=== PATIENT | female | born 1990 | race Caucasian/White ===

== ENCOUNTER 2017-06-10 19:22 | Observation (INO) | payer MEDICAID, SELFPAY ==
[2017-06-10 19:22] VITALS: BP 134/88; PULSE 111; RESP 20; TEMP 36.3; O2SAT 99; BMI 26.4
--- NOTE | 2017-06-10 19:26 | NURSING ---
Addendum entered by Darian Lynn 06/10/17 19:28: PER ISRAEL, PLEASE CALL AT [phone] IF NEEDED Original Note: ISRAEL FROM [facility] CALLED IN, SHE IS AWARE OF THIS PT, AND WILL SEE HER ON THE FLOOR TOMORROW, 06/11/17, IF ADMITTED.
--- NOTE | 2017-06-10 19:56 | ED.VISSUMM ---
- ER Visit Summary Date of Service: 06/10/17 Chief Complaint: [] Withdrawing from heroin and benzodiazepines called and told to come in for detox History of Present Illness: The patient is a 26 F [] long history of heroin and benzodiazepine abuse, prior history for multiple pulmonary emboli, endocarditis in the summer 2016, treated with 6 week IV antibiotic therapy at senior care, she indicates when she was discharged from the therapy she was not offered any long-term maintenance narcotic therapy so she began injecting heroin 1 day after discharge from senior care. Her last injection or use of any illicit drugs was 24 hours ago she states she feels very jittery and jumpy she is having no chest pain fever or cough she has been tested negative for HIV and hepatitis in the past, prior hysterectomy Physical Examination: [] Her vital signs are normal she feels very jittery she is awake and alert head neck chest unremarkable she has a grade 2 out of 6 systolic murmur that soft and she states is not new the abdomen soft nontender she her injection sites the upper extremities are some are old some are new but there is no signs of active infection drainage or pain neurologically she is awake moving all 4 Test Results: [] Emergency Department Course and Treatment: [] Time we did initiate the detox panel see the computer for orders will talk to hospitalist about admission Treatment Plan: [] Disposition: [] Admit stable Impression: [] Heroin and benzodiazepine withdrawal, long history of IV drug abuse, prior history for septic pulmonary emboli, prior history for endocarditis This note was generated with [employer] dictation software. It may contain incorrect words, spelling, and punctuation that were not noted in review of the chart prior to signing ED Disposition - Plan for ED Patient: Chief Complaint: General Illness Referrals: NOT,DEFINED [Primary Care Provider] -
[2017-06-10] MEDS: LORazepam 1 MG Tablet PO (20:11)
[2017-06-10] MEDS: Ondansetron ODT 4 MG Tablet PO (20:11)
[2017-06-10] MEDS: cloNIDine HCl 0.1 MG Tablet 0.2 MG PO (20:11)
[2017-06-10 20:22] LABS: Amphetamine Urine VISTA NEGATIVE (<1000 ng/mL); Barbiturate Urine VISTA NEGATIVE (< 200 ng/mL); Benzodiazepine Urine VISTA POSITIVE (< 200 ng/mL); Cocaine Urine VISTA NEGATIVE (< 300 ng/mL); Ecstacy Urine VISTA NEGATIVE (< 500 ng/mL); Methadone Urine VISTA NEGATIVE (< 300 ng/mL); PCP Urine VISTA NEGATIVE (< 25 ng/mL); THC Urine VISTA NEGATIVE (< 50 ng/mL); Vista UDS pH Range 7
[2017-06-10 20:41] LABS: Absolute Lymphocyte Count 1.51 X10^3/ul (0.83-4.51); Absolute Neutrophil Count 3.7 X10^3/uL (2.0-7.7); Basophil# 0.01 X10^3/uL; Basophil% 0.2 % (0-1); Eosinophil# 0.03 X10^3/uL; Eosinophils% 0.5 % (0-5); Lymphocyte # 1.51 X10^3/ul (4.0); Lymphocyte % 27.1 % (19-41); Mean Corp Hgb Conc 33.3 g/gl (32-36); Mean Corpuscular Hgb 28.5 pg (27.0-32.0); Mean Corpuscular Volume 85.4 fL (81-99); Mean Platelet Vol. 10.1 fl (6.2-12.0); Monocyte# 0.31 X10^3/uL; Monocyte% 5.6 % (0-10); Neutrophil # 3.71 X10^3/uL (2.7-7.7); Neutrophil % 66.4 % (47-70); Platelet Count 277 K/mm3 (150-450); RBC Distribution Width CV 13.7 % (11.6-14.6); RBC Distribution Width SD 42.6 fl (35.1-43.9); Red Blood Count 5.27 M/mm3 (4.2-5.4); White Blood Count 5.6 K/mm3 (4.4-11.0)
[2017-06-10 20:42] LABS: POSITIVE COUNT NO; POSITIVE DIFFERENTIAL NO; POSITIVE MORPHOLOGY NO
[2017-06-10] MEDS: Buprenorphine HCl 2 MG TAB.SUBL SL (21:02)
[2017-06-10 21:05] LABS: Anion Gap 9 (5-15); BUN 16 mg/dL (7-18); BUN/Creat Ratio 19.6 RATIO (10-20); Calcium,Total 9.9 mg/dL (8.5-10.1); Chloride 104 mmol/L (98-107); Creatinine, Serum 0.82 mg/dL (0.55-1.02); EST Glomerular Filtration Rate 88 mL/min (>60); Est Glom Filt Rate - Afr Amer 107 mL/min (>60); Estimated Creatinine Clearance 99.33 ml/min; Glucose 109 mg/dL (70-110); Potassium 3.7 mmol/L (3.5-5.1); Sodium Level 138 mmol/L (136-145)
[2017-06-10 21:16] LABS: Alcohol, Blood (Medical)-Serum < 3.0 mg/dL
--- NOTE | 2017-06-10 21:48 | PCM.HP.STD ---
Problem List (1) Heroin addiction Status: Chronic (2) Anxiety Status: Chronic (3) Insomnia Status: Chronic (4) PTSD (post-traumatic stress disorder) Status: Chronic (5) Endometriosis Status: Chronic (6) Opiate withdrawal Status: Acute (7) History of endocarditis Status: Acute Comment: MRSA....she thinks it was the tricuspid valve. Admitted to [facility] History of Present Illness Date of Admission: 06/10/17 Chief Complaint: presented to the ER requesting admission for medical stabilization for opiate withdrawal The patient is a 26 year old F with a PMH of endometriosis, PTSD, anxiety, endocarditis and insomnia who presented to the [facility] ED on 06/10 requesting inpt admission for medical stabilization for acute opiate withdrawal. She Tells me that the last time she used heroin was 2 days ago. She uses 0.5 - 3 GM per day. Denies any other illicit drug use. She does take Xanax 1 mg p.o. 3 times daily which is prescribed to her. She is c/o N/V/D and abdominal cramping. Has never been to rehab before. Denies any hx of HIV or hepatitis. She has a hx of MRSA in the past and when she was treated for endocarditis at [facility] she was on Vanco and had lenin and then was placed on Daptomycin. She denies recent fevers and shaking chills. She is currently homeless. She is being admitted to the [facility] program for medical stabilization for acute opiate withdrawal. she does not want to be on Vivitrol or Suboxone at [place]. . Past Medical History Past Medical History (Chronic Problems): Chronic Problems Heroin addiction (Chronic) Anxiety (Chronic) Insomnia (Chronic) PTSD (post-traumatic stress disorder) (Chronic) Endometriosis (Chronic) Allergies Penicillins Allergy (Verified 06/10/17 20:10) Other STATES SHE PASSES OUT Home Medications: Ambulatory Orders Medication Instructions Recorded ALPRAZolam [Xanax] 1 mg PO TID PRN PRN 06/10/17 BusPIRone [Buspar] 7.5 mg PO TID PRN PRN 06/10/17 Quetiapine Fumarate [Seroquel] 100 mg PO QHS 06/10/17 Surgical History: hysterectomy - With bilateral oophorectomy, - - has had multiple surgeries for endometriosis in the past Psychiatric History: Anxiety, Post traumatic stress, - - 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 Lives: Homeless Smoking Status: Never smoker Tobacco Use: Non-smoker Alcohol: None Drugs: Heroin - *Family History Maternal History Items: No pertinent history Paternal History Items: No pertinent history Review of Systems Constitutional: Reports: Malaise, - - sweats Eyes: Denies: Blurred vision, Redness HEENT: Denies: Head Aches, Sinus Congestion, Sinus Drainage Cardiovascular: Denies: Chest Pain, Palpitations Respiratory: Denies: Cough, Shortness of breath at rest, Sputum production Gastrointestinal: Reports: Diarrhea, Nausea, Vomiting, - - Abdominal cramping Genitourinary: Denies: Dysuria Gynecological: Denies: Sexual concerns, Vaginal discharge Musculoskeletal: Denies: Joint Pain, Joint Tenderness Skin: Reports: - - She has track alfonso on both arms with ecchymosis. Denies: Jaundice, Rash Neurological: Denies: Numbness, Tingling, Focal weakness Psychiatric: Reports: Anxiety. Denies: Homicidal Ideations, Suicidal Ideations Endocrine: Denies: Hx of Thyroiditis Hematologic/ Lymphatic: Denies: Hx of blood clot VTE Information - Inpt Only VTE Present on Admission: No VTE Mechan Device Prophylaxis: None VTE Pharm Prophylaxis ordered?: No Reason prophylaxis not ordered:: Treatment Not Indicated - she is at low risk and she will be ambulatory Patient Problems: Active and Suspected Problems Opiate withdrawal (Acute) History of endocarditis (Acute) MRSA....she thinks it was the tricuspid valve. Admitted to [facility] - Physical Exam General: Alert, Oriented x3, Cooperative, - - makes good eye contact HEENT: Atraumatic, PERRLA, EOMI, Normocephalic Oral: No Gingival or Mucosal Lesions/ Ulcerations, Dry Mucosa Neck: Supple, No JVD, Negative Carotid Bruits, No Nodes, No Nuchal Rigidity, Trachea Midline Lungs: Clear to auscultation, Normal air movement, No rhonchi, No wheeze, No rales Cardiovascular: Regular rate, Regular Rhythm, Normal S1, Normal S2, No murmurs, No rub noted, No Gallop Abdomen: Bowel Sounds Present, Soft, Non-Distended, Tender Extremities: No clubbing, No cyanosis, No edema, No Calf Tenderness, Peripheral Pulses Normal, - - she has track alfonso on both forearms, R>L......she has a small area on the left hand where she recently had an I&D but there is no evidence of infection at the present time. Skin: No rashes, No breakdown Musculoskeletal: No Muscle Wasting Neurological: Cranial nerves II-XII grossly intact, Neuro grossly intact Psych/Mental Status: Appropriate Vital Signs Temp Pulse Resp BP Pulse Ox 97.4 F L 111 H 20 H 134/88 H 99 06/10/17 19:22 06/10/17 19:22 06/10/17 19:22 06/10/17 19:22 06/10/17 19:22 Oxygen Delivery Method Room Air Weight: 168 lb 6.931 oz Body Mass Index (BMI) 26.4 Laboratory Tests Past 24 Hrs 06/10/17 06/10/17 06/10/17 20:00 20:27 20:27 WBC 5.6 RBC 5.27 Hgb 15.0 Hct 45.0 MCV 85.4 MCH 28.5 MCHC 33.3 RDW 13.7 RDW Differential 42.6 Plt Count 277 MPV 10.1 Immature Gran % (Auto) 0.200 Neut % (Auto) 66.4 Lymph % (Auto) 27.1 [place] % (Auto) 5.6 Eos % (Auto) 0.5 Baso % (Auto) 0.2 Absolute Neuts (auto) 3.7 Absolute Lymphs (auto) 1.51 Total Counted Not Reportable Sodium 138 Potassium 3.7 Chloride 104 Carbon Dioxide 25.0 Anion Gap 9 BUN 16 Creatinine 0.82 Estim Creat Clear Calc 99.33 Est GFR (MDRD) Af Amer 107 Est GFR (MDRD) Non-Af 88 BUN/Creatinine Ratio 19.6 Glucose 109 Calcium 9.9 Urine Opiates Screen POSITIVE H Urine Methadone Screen NEGATIVE Ur Barbiturates Screen NEGATIVE Ur Phencyclidine Scrn NEGATIVE Ur Amphetamines Screen NEGATIVE U Methamphetamin-MDMA NEGATIVE U Benzodiazepines Scrn POSITIVE H Urine Cocaine Screen NEGATIVE U Cannabinoids Screen NEGATIVE Ur Drug Screen Comment Ethyl Alcohol Hepatitis A IgM Ab Hep Bs Antigen Hep Bs Antibody Hep B Core IgM Ab Hepatitis C Ab (EIA) Hepatitis C Comment HIV 1&2 Ag/Ab, 4th Gen HIV 1&2 Antibody 06/10/17 06/10/17 06/10/17 20:27 20:27 20:27 WBC RBC Hgb Hct MCV MCH MCHC RDW RDW Differential Plt Count MPV Immature Gran % (Auto) Neut % (Auto) Lymph % (Auto) [place] % (Auto) Eos % (Auto) Baso % (Auto) Absolute Neuts (auto) Absolute Lymphs (auto) Total Counted Sodium Potassium Chloride Carbon Dioxide Anion Gap BUN Creatinine Estim Creat Clear Calc Est GFR (MDRD) Af Amer Est GFR (MDRD) Non-Af BUN/Creatinine Ratio Glucose Calcium Urine Opiates Screen Urine Methadone Screen Ur Barbiturates Screen Ur Phencyclidine Scrn Ur Amphetamines Screen U Methamphetamin-MDMA U Benzodiazepines Scrn Urine Cocaine Screen U Cannabinoids Screen Ur Drug Screen Comment Ethyl Alcohol < 3.0 Hepatitis A IgM Ab Pending Hep Bs Antigen Pending Hep Bs Antibody Hep B Core IgM Ab Pending Hepatitis C Ab (EIA) Pending Hepatitis C Comment HIV 1&2 Ag/Ab, 4th Gen HIV 1&2 Antibody Cancelled 06/10/17 06/10/17 20:27 20:27 WBC RBC Hgb Hct MCV MCH MCHC RDW RDW Differential Plt Count MPV Immature Gran % (Auto) Neut % (Auto) Lymph % (Auto) [place] % (Auto) Eos % (Auto) Baso % (Auto) Absolute Neuts (auto) Absolute Lymphs (auto) Total Counted Sodium Potassium Chloride Carbon Dioxide Anion Gap BUN Creatinine Estim Creat Clear Calc Est GFR (MDRD) Af Amer Est GFR (MDRD) Non-Af BUN/Creatinine Ratio Glucose Calcium Urine Opiates Screen Urine Methadone Screen Ur Barbiturates Screen Ur Phencyclidine Scrn Ur Amphetamines Screen U Methamphetamin-MDMA U Benzodiazepines Scrn Urine Cocaine Screen U Cannabinoids Screen Ur Drug Screen Comment Ethyl Alcohol Hepatitis A IgM Ab Hep Bs Antigen Pending Hep Bs Antibody Pending Hep B Core IgM Ab Hepatitis C Ab (EIA) Pending Hepatitis C Comment Pending HIV 1&2 Ag/Ab, 4th Gen Pending HIV 1&2 Antibody Assessment/Plan Active and Suspected Problems Opiate withdrawal (Acute) History of endocarditis (Acute) MRSA....she thinks it was the tricuspid valve. Admitted to [facility] Impressions 1. Acute opiate withdrawal 2. Heroin addiction 3. 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 Endometriosis with multiple surgeries in the past including MOIRA with BSO 5. Chronic benzodiazepine use 6. Anxiety 7. PTSD The [facility] protocol for acute opiate withdrawal has been initiated Will decrease the Xanax to 0.5 mg BID and 1 mg Q HS. she understands that this medication will need to be weaned off over the next several weeks HIV and hep panel Obtain the records from [facility] Consider starting Effexor or Cymbalta at some point for control of Anxiety and depression and for chronic pelvic pain from Multiple pelvic surgeries for endometriosis. Code Visit Inpatient E&M: 13433 Init Hosp L2
--- NOTE | 2017-06-10 21:52 | HP.PCM_ITS ---
Problem List (1) Heroin addiction Status: Chronic (2) Anxiety Status: Chronic (3) Insomnia Status: Chronic (4) PTSD (post-traumatic stress disorder) Status: Chronic (5) Endometriosis Status: Chronic (6) Opiate withdrawal Status: Acute (7) History of endocarditis Status: Acute Comment: MRSA....she thinks it was the tricuspid valve. Admitted to [facility] History of Present Illness Date of Admission: 06/10/17 Chief Complaint: presented to the ER requesting admission for medical stabilization for opiate withdrawal The patient is a 26 year old F with a PMH of endometriosis, PTSD, anxiety, endocarditis and insomnia who presented to the [facility] ED on 06/10 requesting inpt admission for medical stabilization for acute opiate withdrawal. She Tells me that the last time she used heroin was 2 days ago. She uses 0.5 - 3 GM per day. Denies any other illicit drug use. She does take Xanax 1 mg p.o. 3 times daily which is prescribed to her. She is c/o N/V/D and abdominal cramping. Has never been to rehab before. Denies any hx of HIV or hepatitis. She has a hx of MRSA in the past and when she was treated for endocarditis at [facility] she was on Vanco and had lenin and then was placed on Daptomycin. She denies recent fevers and shaking chills. She is currently homeless. She is being admitted to the [facility] program for medical stabilization for acute opiate withdrawal. she does not want to be on Vivitrol or Suboxone at [place]. . Past Medical History Past Medical History (Chronic Problems): Chronic Problems Heroin addiction (Chronic) Anxiety (Chronic) Insomnia (Chronic) PTSD (post-traumatic stress disorder) (Chronic) Endometriosis (Chronic) Allergies Penicillins Allergy (Verified 06/10/17 20:10) Other STATES SHE PASSES OUT Home Medications: Ambulatory Orders Medication Instructions Recorded ALPRAZolam [Xanax] 1 mg PO TID PRN PRN 06/10/17 BusPIRone [Buspar] 7.5 mg PO TID PRN PRN 06/10/17 Quetiapine Fumarate [Seroquel] 100 mg PO QHS 06/10/17 Surgical History: hysterectomy - With bilateral oophorectomy, - - has had multiple surgeries for endometriosis in the past Psychiatric History: Anxiety, Post traumatic stress, - - 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: Homeless Smoking Status: Never smoker Tobacco Use: Non-smoker Alcohol: None Drugs: Heroin - *Family History Maternal History Items: No pertinent history Paternal History Items: No pertinent history Review of Systems Constitutional: Reports: Malaise, - - sweats Eyes: Denies: Blurred vision, Redness HEENT: Denies: Head Aches, Sinus Congestion, Sinus Drainage Cardiovascular: Denies: Chest Pain, Palpitations Respiratory: Denies: Cough, Shortness of breath at rest, Sputum production Gastrointestinal: Reports: Diarrhea, Nausea, Vomiting, - - Abdominal cramping Genitourinary: Denies: Dysuria Gynecological: Denies: Sexual concerns, Vaginal discharge Musculoskeletal: Denies: Joint Pain, Joint Tenderness Skin: Reports: - - She has track alfonso on both arms with ecchymosis. Denies: Jaundice, Rash Neurological: Denies: Numbness, Tingling, Focal weakness Psychiatric: Reports: Anxiety. Denies: Homicidal Ideations, Suicidal Ideations Endocrine: Denies: Hx of Thyroiditis Hematologic/ Lymphatic: Denies: Hx of blood clot VTE Information - Inpt Only VTE Present on Admission: No VTE Mechan Device Prophylaxis: None VTE Pharm Prophylaxis ordered?: No Reason prophylaxis not ordered:: Treatment Not Indicated - she is at low risk and she will be ambulatory Patient Problems: Active and Suspected Problems Opiate withdrawal (Acute) History of endocarditis (Acute) MRSA....she thinks it was the tricuspid valve. Admitted to [facility] - Physical Exam General: Alert, Oriented x3, Cooperative, - - makes good eye contact HEENT: Atraumatic, PERRLA, EOMI, Normocephalic Oral: No Gingival or Mucosal Lesions/ Ulcerations, Dry Mucosa Neck: Supple, No JVD, Negative Carotid Bruits, No Nodes, No Nuchal Rigidity, Trachea Midline Lungs: Clear to auscultation, Normal air movement, No rhonchi, No wheeze, No rales Cardiovascular: Regular rate, Regular Rhythm, Normal S1, Normal S2, No murmurs, No rub noted, No Gallop Abdomen: Bowel Sounds Present, Soft, Non-Distended, Tender Extremities: No clubbing, No cyanosis, No edema, No Calf Tenderness, Peripheral Pulses Normal, - - she has track alfonso on both forearms, R>L......she has a small area on the left hand where she recently had an I&D but there is no evidence of infection at the present time. Skin: No rashes, No breakdown Musculoskeletal: No Muscle Wasting Neurological: Cranial nerves II-XII grossly intact, Neuro grossly intact Psych/Mental Status: Appropriate Vital Signs Temp Pulse Resp BP Pulse Ox 97.4 F L 111 H 20 H 134/88 H 99 06/10/17 19:22 06/10/17 19:22 06/10/17 19:22 06/10/17 19:22 06/10/17 19:22 Oxygen Delivery Method Room Air Weight: 168 lb 6.931 oz Body Mass Index (BMI) 26.4 Laboratory Tests Past 24 Hrs 06/10/17 06/10/17 06/10/17 20:00 20:27 20:27 WBC 5.6 RBC 5.27 Hgb 15.0 Hct 45.0 MCV 85.4 MCH 28.5 MCHC 33.3 RDW 13.7 RDW Differential 42.6 Plt Count 277 MPV 10.1 Immature Gran % (Auto) 0.200 Neut % (Auto) 66.4 Lymph % (Auto) 27.1 [place] % (Auto) 5.6 Eos % (Auto) 0.5 Baso % (Auto) 0.2 Absolute Neuts (auto) 3.7 Absolute Lymphs (auto) 1.51 Total Counted Not Reportable Sodium 138 Potassium 3.7 Chloride 104 Carbon Dioxide 25.0 Anion Gap 9 BUN 16 Creatinine 0.82 Estim Creat Clear Calc 99.33 Est GFR (MDRD) Af Amer 107 Est GFR (MDRD) Non-Af 88 BUN/Creatinine Ratio 19.6 Glucose 109 Calcium 9.9 Urine Opiates Screen POSITIVE H Urine Methadone Screen NEGATIVE Ur Barbiturates Screen NEGATIVE Ur Phencyclidine Scrn NEGATIVE Ur Amphetamines Screen NEGATIVE U Methamphetamin-MDMA NEGATIVE U Benzodiazepines Scrn POSITIVE H Urine Cocaine Screen NEGATIVE U Cannabinoids Screen NEGATIVE Ur Drug Screen Comment Ethyl Alcohol Hepatitis A IgM Ab Hep Bs Antigen Hep Bs Antibody Hep B Core IgM Ab Hepatitis C Ab (EIA) Hepatitis C Comment HIV 1&2 Ag/Ab, 4th Gen HIV 1&2 Antibody 06/10/17 06/10/17 06/10/17 20:27 20:27 20:27 WBC RBC Hgb Hct MCV MCH MCHC RDW RDW Differential Plt Count MPV Immature Gran % (Auto) Neut % (Auto) Lymph % (Auto) [place] % (Auto) Eos % (Auto) Baso % (Auto) Absolute Neuts (auto) Absolute Lymphs (auto) Total Counted Sodium Potassium Chloride Carbon Dioxide Anion Gap BUN Creatinine Estim Creat Clear Calc Est GFR (MDRD) Af Amer Est GFR (MDRD) Non-Af BUN/Creatinine Ratio Glucose Calcium Urine Opiates Screen Urine Methadone Screen Ur Barbiturates Screen Ur Phencyclidine Scrn Ur Amphetamines Screen U Methamphetamin-MDMA U Benzodiazepines Scrn Urine Cocaine Screen U Cannabinoids Screen Ur Drug Screen Comment Ethyl Alcohol < 3.0 Hepatitis A IgM Ab Pending Hep Bs Antigen Pending Hep Bs Antibody Hep B Core IgM Ab Pending Hepatitis C Ab (EIA) Pending Hepatitis C Comment HIV 1&2 Ag/Ab, 4th Gen HIV 1&2 Antibody Cancelled 06/10/17 06/10/17 20:27 20:27 WBC RBC Hgb Hct MCV MCH MCHC RDW RDW Differential Plt Count MPV Immature Gran % (Auto) Neut % (Auto) Lymph % (Auto) [place] % (Auto) Eos % (Auto) Baso % (Auto) Absolute Neuts (auto) Absolute Lymphs (auto) Total Counted Sodium Potassium Chloride Carbon Dioxide Anion Gap BUN Creatinine Estim Creat Clear Calc Est GFR (MDRD) Af Amer Est GFR (MDRD) Non-Af BUN/Creatinine Ratio Glucose Calcium Urine Opiates Screen Urine Methadone Screen Ur Barbiturates Screen Ur Phencyclidine Scrn Ur Amphetamines Screen U Methamphetamin-MDMA U Benzodiazepines Scrn Urine Cocaine Screen U Cannabinoids Screen Ur Drug Screen Comment Ethyl Alcohol Hepatitis A IgM Ab Hep Bs Antigen Pending Hep Bs Antibody Pending Hep B Core IgM Ab Hepatitis C Ab (EIA) Pending Hepatitis C Comment Pending HIV 1&2 Ag/Ab, 4th Gen Pending HIV 1&2 Antibody Assessment/Plan Active and Suspected Problems Opiate withdrawal (Acute) History of endocarditis (Acute) MRSA....she thinks it was the tricuspid valve. Admitted to [facility] Impressions 1. Acute opiate withdrawal 2. Heroin addiction 3. 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 Endometriosis with multiple surgeries in the past including MOIRA with BSO 5. Chronic benzodiazepine use 6. Anxiety 7. PTSD The [facility] protocol for acute opiate withdrawal has been initiated Will decrease the Xanax to 0.5 mg BID and 1 mg Q HS. she understands that this medication will need to be weaned off over the next several weeks HIV and hep panel Obtain the records from [facility] Consider starting Effexor or Cymbalta at some point for control of Anxiety and depression and for chronic pelvic pain from Multiple pelvic surgeries for endometriosis. Code Visit Inpatient E&M: 22870 Init Hosp L2
[2017-06-10 22:13] VITALS: BP 98/59; PULSE 87; RESP 16; O2SAT 99
[2017-06-10] MEDS: Naproxen 250 MG Tablet 500 MG PO (22:18)
[2017-06-10 22:34] VITALS: BP 98/59; PULSE 87; RESP 16; TEMP 36.3; O2SAT 99
[2017-06-10 23:24] VITALS: BP 109/71; PULSE 90; RESP 16; TEMP 36.3; O2SAT 100
[2017-06-10 23:27] VITALS: BMI 25.7
[2017-06-10 23:34] VITALS: BMI 25.8
[2017-06-11] VITALS (12 sets, daily range): BP systolic 82–121; BP diastolic 45–76; PULSE 65–90; RESP 16–18; TEMP 36.3–36.7; O2SAT 98–100
[2017-06-11] MEDS: ALPRAZolam 0.5 MG Tablet 1 MG PO ×2 (00:41→22:05)
[2017-06-11] MEDS: QUEtiapine 100 MG Tablet PO ×2 (00:42→22:05)
[2017-06-11] MEDS: Carbidopa/Levodopa 25/100 Tablet PO ×3 (00:46→20:05)
[2017-06-11] MEDS: Ibuprofen 600 MG Tablet PO ×3 (00:46→20:05)
[2017-06-11] MEDS: Dicyclomine 10 MG Capsule 20 MG PO ×2 (04:07→11:54)
[2017-06-11] MEDS: Buprenorphine HCl 2 MG TAB.SUBL SL ×3 (04:07→20:04)
[2017-06-11] MEDS: Ondansetron ODT 4 MG Tablet PO ×2 (04:07→11:54)
[2017-06-11] MEDS: cloNIDine HCl 0.1 MG Tablet PO ×3 (04:07→20:05)
[2017-06-11] MEDS: Multivitamins,Ther W-Minerals Tablet 1 TABLET PO (07:46)
[2017-06-11] MEDS: ALPRAZolam 0.5 MG Tablet PO ×2 (09:52→14:52)
--- NOTE | 2017-06-11 10:57 | CASEMGMT ---
Social Work Received update from RN RICK Carr - that pt was requesting to complete advanced directives. SW entered pt's room and she states that she is trying to sleep. Introduced self and role and that SW was providing information and education on advanced directives per the pt's request. Pt requests to complete tomorrow, 06/12. Inform the pt to notify nursing and SW will come down as time allows to complete paperwork if appropriate. Will continue to assist as needed. Charlotte Thomas, PLASTER MIXER INFORMATION ASSURANCE ANALYST
--- NOTE | 2017-06-11 12:05 | NURSING ---
pt up walking in hallway
--- NOTE | 2017-06-11 13:17 | PCM.PN.HOSP ---
Patient Problems: Active and Suspected Problems Opiate withdrawal (Acute) History of endocarditis (Acute) MRSA....she thinks it was the tricuspid valve. Admitted to [facility] Subjective: Patient has anxiety. Feeling better than yesterday Vitals/I&O's: Vital Signs Temp Pulse Resp BP Pulse Ox 97.5 F L 72 18 97/58 L 100 06/11/17 12:00 06/11/17 12:00 06/11/17 12:00 06/11/17 12:00 06/11/17 11:59 Oxygen Delivery Method Room Air Weight: 164 lb 10.965 oz Body Mass Index (BMI) 25.7 Intake and Output for Last 24 Hours 06/09/17 06/10/17 06/11/17 23:59 23:59 23:59 Intake Total 400 / 400 Output Total 100 / 100 Balance 300 / 300 General: Alert, Oriented x3, Cooperative HEENT: Atraumatic, PERRLA, EOMI, Normocephalic Neck: Supple, No JVD, Negative Carotid Bruits Lungs: Clear to auscultation, Normal air movement, No rhonchi, No wheeze, No rales Cardiovascular: Regular rate, Regular Rhythm, Normal S1, Normal S2, No murmurs Abdomen: Bowel Sounds Present, Soft, Non Tender, Non-Distended Extremities: No edema, Capillary Refill Less than 3 Seconds Skin: No rashes, No breakdown Musculoskeletal: No Tenderness to Palpation of Joints or Extremities Neurological: Cranial nerves II-XII grossly intact, Neuro grossly intact Psych/Mental Status: Anxious, Restless Current Medications Acetaminophen (Tylenol) 500 mg PO Q4H PRN PRN PRN Reason: Temp > 100.4 F Al Hydroxide/Mg Hydroxide (Mylanta Ii) 30 ml PO Q6H PRN PRN PRN Reason: dyspesia Alprazolam (Xanax) 0.5 mg PO BID@0600,1400 [facility] Last Admin: 06/11/17 09:52 Dose: 0.5 mg Alprazolam (Xanax) 1 mg PO QHS [facility] Last Admin: 06/11/17 00:41 Dose: 1 mg Bisacodyl (Dulcolax) 10 mg RECTAL DAILY PRN PRN Reason: Constipation Buprenorphine HCl (Buprenorphine Hcl) 4 mg SL Q8H [facility] PRN Reason: Taper Stop: 06/13/17 23:59 Last Admin: 06/11/17 11:54 Dose: 4 mg Carbidopa/Levodopa (Sinemet) 1 tablet PO Q8H PRN PRN PRN Reason: RESTLESSNESS Last Admin: 06/11/17 11:54 Dose: 1 tablet Clonidine (Catapres) 0.1 mg PO Q2H PRN PRN PRN Reason: Hot/Cold Sweats or Anxiety Last Admin: 06/11/17 12:06 Dose: 0.1 mg Dicyclomine HCl (Bentyl) 20 mg PO Q6H PRN PRN PRN Reason: Abdomnial Discomfort Last Admin: 06/11/17 11:54 Dose: 20 mg Hydroxyzine Pamoate (Vistaril) 50 mg PO Q6H PRN PRN PRN Reason: Mild Anxiety (score 1/3) Last Admin: 06/11/17 11:54 Dose: 50 mg Ibuprofen (Motrin) 600 mg PO Q8H PRN PRN PRN Reason: Mild-Moderate Pain (1-5/10) Last Admin: 06/11/17 11:53 Dose: 600 mg Loperamide HCl (Imodium) 2 - 4 mg PO UD PRN PRN Reason: LOOSE STOOLS Multivitamins/Minerals ([facility]itamin With [facility]) [facility] Last Admin: 06/11/17 07:46 Dose: 1 tablet Ondansetron HCl (Zofran Odt) 4 mg PO Q6H PRN PRN PRN Reason: NAUSEA Last Admin: 06/11/17 11:54 Dose: 4 mg Quetiapine Fumarate (Seroquel) 100 mg PO QHS [facility] Last Admin: 06/11/17 00:42 Dose: 100 mg Senna (Senokot) 1 tablet PO QHS PRN PRN Reason: Constipation Assessment/Plan Active and Suspected Problems Opiate withdrawal (Acute) History of endocarditis (Acute) MRSA....she thinks it was the tricuspid valve. Admitted to [facility] This is a 26-year-old female with history of PTSD, anxiety polysubstance use on IV heroin with history of MRSA endocarditis and septic pulmonary emboli, develop red man syndrome on IV vancomycin that was later switched to daptomycin is being admitted for medical stabilization of acute opioid withdrawal. she does not want to be on Vivitrol or Suboxone at [place]. 1. Acute opioid withdrawal: We will [facility] protocol for medical stabilization acute opioid withdrawal. HIV and hepatitis panel was ordered. 2. Polysubstance use including IV heroin, chronic benzodiazepine use, anxiety and PTSD 3. Other chronic comorbidities including endometriosis status post multiple surgeries including MOIRA with BSO. DVT prophylaxis: Low risk, encourage early ambulation Code Visit Inpatient E&M: 56756 Subs Hosp L2
--- NOTE | 2017-06-11 13:22 | PN_ITS ---
Patient Problems: Active and Suspected Problems Opiate withdrawal (Acute) History of endocarditis (Acute) MRSA....she thinks it was the tricuspid valve. Admitted to [facility] Subjective: Patient has anxiety. Feeling better than yesterday Vitals/I&O's: Vital Signs Temp Pulse Resp BP Pulse Ox 97.5 F L 72 18 97/58 L 100 06/11/17 12:00 06/11/17 12:00 06/11/17 12:00 06/11/17 12:00 06/11/17 11:59 Oxygen Delivery Method Room Air Weight: 164 lb 10.965 oz Body Mass Index (BMI) 25.7 Intake and Output for Last 24 Hours 06/09/17 06/10/17 06/11/17 23:59 23:59 23:59 Intake Total 400 / 400 Output Total 100 / 100 Balance 300 / 300 General: Alert, Oriented x3, Cooperative HEENT: Atraumatic, PERRLA, EOMI, Normocephalic Neck: Supple, No JVD, Negative Carotid Bruits Lungs: Clear to auscultation, Normal air movement, No rhonchi, No wheeze, No rales Cardiovascular: Regular rate, Regular Rhythm, Normal S1, Normal S2, No murmurs Abdomen: Bowel Sounds Present, Soft, Non Tender, Non-Distended Extremities: No edema, Capillary Refill Less than 3 Seconds Skin: No rashes, No breakdown Musculoskeletal: No Tenderness to Palpation of Joints or Extremities Neurological: Cranial nerves II-XII grossly intact, Neuro grossly intact Psych/Mental Status: Anxious, Restless Current Medications Acetaminophen (Tylenol) 500 mg PO Q4H PRN PRN PRN Reason: Temp > 100.4 F Al Hydroxide/Mg Hydroxide (Mylanta Ii) 30 ml PO Q6H PRN PRN PRN Reason: dyspesia Alprazolam (Xanax) 0.5 mg PO BID@0600,1400 [facility] Last Admin: 06/11/17 09:52 Dose: 0.5 mg Alprazolam (Xanax) 1 mg PO QHS [facility] Last Admin: 06/11/17 00:41 Dose: 1 mg Bisacodyl (Dulcolax) 10 mg RECTAL DAILY PRN PRN Reason: Constipation Buprenorphine HCl (Buprenorphine Hcl) 4 mg SL Q8H [facility] PRN Reason: Taper Stop: 06/13/17 23:59 Last Admin: 06/11/17 11:54 Dose: 4 mg Carbidopa/Levodopa (Sinemet) 1 tablet PO Q8H PRN PRN PRN Reason: RESTLESSNESS Last Admin: 06/11/17 11:54 Dose: 1 tablet Clonidine (Catapres) 0.1 mg PO Q2H PRN PRN PRN Reason: Hot/Cold Sweats or Anxiety Last Admin: 06/11/17 12:06 Dose: 0.1 mg Dicyclomine HCl (Bentyl) 20 mg PO Q6H PRN PRN PRN Reason: Abdomnial Discomfort Last Admin: 06/11/17 11:54 Dose: 20 mg Hydroxyzine Pamoate (Vistaril) 50 mg PO Q6H PRN PRN PRN Reason: Mild Anxiety (score 1/3) Last Admin: 06/11/17 11:54 Dose: 50 mg Ibuprofen (Motrin) 600 mg PO Q8H PRN PRN PRN Reason: Mild-Moderate Pain (1-5/10) Last Admin: 06/11/17 11:53 Dose: 600 mg Loperamide HCl (Imodium) 2 - 4 mg PO UD PRN PRN Reason: LOOSE STOOLS [facility]ivitamins[facility]Minerals [facility] Admin: 06/11/17 07:46 Dose: 1 tablet Ondansetron HCl (Zofran Odt) 4 mg PO Q6H PRN PRN PRN Reason: NAUSEA Last Admin: 06/11/17 11:54 Dose: 4 mg Quetiapine Fumarate (Seroquel) 100 mg PO QHS [facility] Last Admin: 06/11/17 00:42 Dose: 100 mg Senna (Senokot) 1 tablet PO QHS PRN PRN Reason: Constipation Assessment/Plan Active and Suspected Problems Opiate withdrawal (Acute) History of endocarditis (Acute) MRSA....she thinks it was the tricuspid valve. Admitted to [facility] This is a 26-year-old female with history of PTSD, anxiety polysubstance use on IV heroin with history of MRSA endocarditis and septic pulmonary emboli, develop red man syndrome on IV vancomycin that was later switched to daptomycin is being admitted for medical stabilization of acute opioid withdrawal. she does not want to be on Vivitrol or Suboxone at [place]. 1. Acute opioid withdrawal: We will [facility] protocol for medical stabilization acute opioid withdrawal. HIV and hepatitis panel was ordered. 2. Polysubstance use including IV heroin, chronic benzodiazepine use, anxiety and PTSD 3. Other chronic comorbidities including endometriosis status post multiple surgeries including MOIRA with BSO. DVT prophylaxis: Low risk, encourage early ambulation Code Visit Inpatient E&M: 33832 Subs Hosp L2
[2017-06-12] VITALS (8 sets, daily range): BP systolic 89–115; BP diastolic 39–65; PULSE 66–88; RESP 16; TEMP 36.4–36.8; O2SAT 99–100
[2017-06-12] MEDS: Ibuprofen 600 MG Tablet PO ×3 (04:11→22:08)
[2017-06-12] MEDS: Carbidopa/Levodopa 25/100 Tablet PO ×3 (04:11→22:08)
[2017-06-12] MEDS: cloNIDine HCl 0.1 MG Tablet PO ×5 (04:11→22:08)
[2017-06-12] MEDS: Buprenorphine HCl 2 MG TAB.SUBL SL ×3 (04:11→23:59)
[2017-06-12] MEDS: ALPRAZolam 0.5 MG Tablet PO ×2 (07:20→14:42)
--- NOTE | 2017-06-12 07:58 | PN_ITS ---
Patient Problems: Active and Suspected Problems Opiate withdrawal (Acute) History of endocarditis (Acute) MRSA....she thinks it was the tricuspid valve. Admitted to [facility] Subjective: Patient is feeling cold probably due to acute heroin withdrawal. Otherwise, doing good. Vitals/I&O's: Vital Signs Temp Pulse Resp BP Pulse Ox 97.9 F 88 16 102/60 99 06/12/17 04:10 06/12/17 04:10 06/12/17 04:10 06/12/17 04:10 06/12/17 04:10 Oxygen Delivery Method Room Air Weight: 164 lb 10.965 oz Body Mass Index (BMI) 25.7 Intake and Output for Last 24 Hours 06/10/17 06/11/17 06/12/17 23:59 23:59 23:59 Intake Total 1300 / 1300 490 / 490 Output Total 100 / 100 Balance 1200 / 1200 490 / 490 General: Alert, Oriented x3, Cooperative HEENT: Atraumatic, PERRLA, EOMI, Normocephalic Neck: Supple, No JVD, Negative Carotid Bruits Lungs: Clear to auscultation, Normal air movement, No rhonchi, No wheeze, No rales Cardiovascular: Regular rate, Regular Rhythm, Normal S1, Normal S2, No murmurs Abdomen: Bowel Sounds Present, Soft, Non Tender, Non-Distended Extremities: No edema, Capillary Refill Less than 3 Seconds Skin: No rashes, No breakdown Musculoskeletal: No Tenderness to Palpation of Joints or Extremities Neurological: Cranial nerves II-XII grossly intact Psych/Mental Status: Normal Affect, Appropriate Current Medications Acetaminophen (Tylenol) 500 mg PO Q4H PRN PRN PRN Reason: Temp > 100.4 F Al Hydroxide/Mg Hydroxide (Mylanta Ii) 30 ml PO Q6H PRN PRN PRN Reason: dyspesia Alprazolam (Xanax) 0.5 mg PO BID@0600,1400 [facility] Last Admin: 06/12/17 07:20 Dose: 0.5 mg Alprazolam (Xanax) 1 mg PO QHS [facility] Last Admin: 06/11/17 22:05 Dose: 1 mg Bisacodyl (Dulcolax) 10 mg RECTAL DAILY PRN PRN Reason: Constipation Buprenorphine HCl (Buprenorphine Hcl) 2 mg SL Q8H [facility] PRN Reason: Taper Stop: 06/13/17 23:59 Last Admin: 06/12/17 04:11 Dose: 2 mg Carbidopa/Levodopa (Sinemet) 1 tablet PO Q8H PRN PRN PRN Reason: RESTLESSNESS Last Admin: 06/12/17 04:11 Dose: 1 tablet Clonidine (Catapres) 0.1 mg PO Q2H PRN PRN PRN Reason: Hot/Cold Sweats or Anxiety Last Admin: 06/12/17 04:11 Dose: 0.1 mg Dicyclomine HCl (Bentyl) 20 mg PO Q6H PRN PRN PRN Reason: Abdomnial Discomfort Last Admin: 06/11/17 11:54 Dose: 20 mg Hydroxyzine Pamoate (Vistaril) 50 mg PO Q6H PRN PRN PRN Reason: Mild Anxiety (score 1/3) Last Admin: 06/12/17 04:11 Dose: 50 mg Ibuprofen (Motrin) 600 mg PO Q8H PRN PRN PRN Reason: Mild-Moderate Pain (1-5/10) Last Admin: 06/12/17 04:11 Dose: 600 mg Loperamide HCl (Imodium) 2 - 4 mg PO UD PRN PRN Reason: LOOSE STOOLS Multivitamins/Minerals ([facility]) [facility] Last Admin: 06/11/17 07:46 Dose: 1 tablet Ondansetron HCl (Zofran Odt) 4 mg PO Q6H PRN PRN PRN Reason: NAUSEA Last Admin: 06/11/17 11:54 Dose: 4 mg Quetiapine Fumarate (Seroquel) 100 mg PO QHS [facility] Last Admin: 06/11/17 22:05 Dose: 100 mg Senna (Senokot) 1 tablet PO QHS PRN PRN Reason: Constipation Assessment/Plan Active and Suspected Problems Opiate withdrawal (Acute) History of endocarditis (Acute) MRSA....she thinks it was the tricuspid valve. 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 she does not want to be on Vivitrol or Suboxone at [place]. 1. Acute opioid withdrawal: We will [facility] protocol for medical stabilization acute opioid withdrawal. HIV and hepatitis panel are pending. U tox shows positive opioids and benzodiazepines. 2. Polysubstance use including IV heroin, chronic benzodiazepine use, anxiety and PTSD 3. Other chronic comorbidities including endometriosis status post multiple surgeries including MOIRA with BSO. DVT prophylaxis: Low risk, encourage early ambulation Code Visit Inpatient E&M: 84798 Subs Hosp L2
[2017-06-12] MEDS: Multivitamins,Ther W-Minerals Tablet 1 TABLET PO (11:48)
[2017-06-12] MEDS: Ondansetron ODT 4 MG Tablet PO (11:49)
[2017-06-12] MEDS: Dicyclomine 10 MG Capsule 20 MG PO (11:49)
--- NOTE | 2017-06-12 14:20 | CHAPLAIN ---
Type of Pastoral Visit _x__ Initial Visit ___ Follow-up Visit ___ On-call Visit ___ General Patient Visit ___ Spiritual Assessment ___ Family Conference ___ Bereavement ___ Rapid Response ___ Code Blue ___ Other (describe below) Pastoral Care Referral From ___ Patient ___ Family ___ Nurse ___ Physician ___ [employer] ___ Hammer Operator _x__ Other (describe below) Sacrament/Intervention ___ Active listening ___ Anointing ___ Voodoo ___ Bereavement ___ Communion ___ Anastasiya exploration ___ ___ Life review ___ Prayer ___ Reconciliation ___ Sacrament of Sick _x__ Supportive presence ___ Wedding ___ Other (describe below) Pastoral Comments introduction to patient about spiritual care services; pt says that she is tired and would like to sleep but appreciates knowing spiritual care is available; encounter ended
[2017-06-12] MEDS: Methocarbamol 750 MG Tablet PO (17:38)
[2017-06-12] MEDS: Pramipexole Di-HCl 0.25 MG Tablet PO (17:39)
[2017-06-12] MEDS: ALPRAZolam 0.5 MG Tablet 1 MG PO (22:08)
[2017-06-12] MEDS: QUEtiapine 100 MG Tablet PO (22:08)
[2017-06-13] MEDS: Methocarbamol 750 MG Tablet PO ×2 (02:07→11:56)
[2017-06-13 06:06] VITALS: BP 100/61; PULSE 72; RESP 16; TEMP 37
[2017-06-13] MEDS: Pramipexole Di-HCl 0.25 MG Tablet PO (06:08)
[2017-06-13] MEDS: ALPRAZolam 0.5 MG Tablet PO ×2 (06:08→14:14)
[2017-06-13] MEDS: Carbidopa/Levodopa 25/100 Tablet PO ×2 (06:08→14:14)
[2017-06-13] MEDS: cloNIDine HCl 0.1 MG Tablet PO ×3 (06:08→14:15)
--- NOTE | 2017-06-13 09:13 | PCM.PN.HOSP ---
Patient Problems: Active and Suspected Problems Opiate withdrawal (Acute) History of endocarditis (Acute) MRSA....she thinks it was the tricuspid valve. Admitted to [facility] Subjective: Mild muscle aches and pain Vitals/I&O's: Vital Signs Temp Pulse Resp BP Pulse Ox 98.6 F 72 16 100/61 100 06/13/17 06:06 06/13/17 06:06 06/13/17 06:06 06/13/17 06:06 06/12/17 22:05 Oxygen Delivery Method Room Air Weight: 164 lb 10.965 oz Body Mass Index (BMI) 25.7 Intake and Output for Last 24 Hours 06/11/17 06/12/17 06/13/17 23:59 23:59 23:59 Intake Total 1300 / 1300 1969 500 / 500 Output Total 100 / 100 Balance 1200 / 1200 1969 500 / 500 General: Alert, Oriented x3, Cooperative HEENT: Atraumatic, PERRLA, EOMI, Normocephalic Neck: Supple, No JVD, Negative Carotid Bruits Lungs: Clear to auscultation, Normal air movement, No rhonchi, No wheeze, No rales Cardiovascular: Regular rate, Regular Rhythm, Normal S1, Normal S2, No murmurs Abdomen: Bowel Sounds Present, Soft, Non Tender Extremities: No edema, Capillary Refill Less than 3 Seconds Skin: No rashes, No breakdown Musculoskeletal: No Tenderness to Palpation of Joints or Extremities Neurological: Cranial nerves II-XII grossly intact Psych/Mental Status: Normal Affect, Appropriate Current Medications Acetaminophen (Tylenol) 500 mg PO Q4H PRN PRN PRN Reason: Temp > 100.4 F Al Hydroxide/Mg Hydroxide (Mylanta Ii) 30 ml PO Q6H PRN PRN PRN Reason: dyspesia Alprazolam (Xanax) 0.5 mg PO BID@0600,1400 [facility] Last Admin: 06/13/17 06:08 Dose: 0.5 mg Alprazolam (Xanax) 1 mg PO QHS [facility] Last Admin: 06/12/17 22:08 Dose: 1 mg Bisacodyl (Dulcolax) 10 mg RECTAL DAILY PRN PRN Reason: Constipation Buprenorphine HCl (Buprenorphine Hcl) 2 mg SL Q12H [facility] PRN Reason: Taper Stop: 06/13/17 23:59 Last Admin: 06/12/17 23:59 Dose: 2 mg Carbidopa/Levodopa (Sinemet) 1 tablet PO Q8H PRN PRN PRN Reason: RESTLESSNESS Last Admin: 06/13/17 06:08 Dose: 1 tablet Clonidine (Catapres) 0.1 mg PO Q2H PRN PRN PRN Reason: Hot/Cold Sweats or Anxiety Last Admin: 06/13/17 06:08 Dose: 0.1 mg Dicyclomine HCl (Bentyl) 20 mg PO Q6H PRN PRN PRN Reason: Abdomnial Discomfort Last Admin: 06/12/17 11:49 Dose: 20 mg Hydroxyzine Pamoate (Vistaril) 50 mg PO Q6H PRN PRN PRN Reason: Mild Anxiety (score 1/3) Last Admin: 06/13/17 02:07 Dose: 50 mg Ibuprofen (Motrin) 600 mg PO Q8H PRN PRN PRN Reason: Mild-Moderate Pain (1-5/10) Last Admin: 06/12/17 22:08 Dose: 600 mg Loperamide HCl (Imodium) 2 - 4 mg PO UD PRN PRN Reason: LOOSE STOOLS Methocarbamol (Methocarbamol) 750 mg PO Q6H PRN PRN PRN Reason: Muscle Aches Last Admin: 06/13/17 02:07 Dose: 750 mg Multivitamins/Minerals (Multivitamin With Minerals) [facility] Last Admin: 06/12/17 11:48 Dose: 1 tablet Ondansetron HCl (Zofran Odt) 4 mg PO Q6H PRN PRN PRN Reason: NAUSEA Last Admin: 06/12/17 11:49 Dose: 4 mg Pramipexole Dihydrochloride (Mirapex) 0.25 mg PO Q12H PRN PRN PRN Reason: Restless legs Last Admin: 06/13/17 06:08 Dose: 0.25 mg Quetiapine Fumarate (Seroquel) 100 mg PO QHS [facility] Last Admin: 06/12/17 22:08 Dose: 100 mg Senna (Senokot) 1 tablet PO QHS PRN PRN Reason: Constipation Assessment/Plan Active and Suspected Problems Opiate withdrawal (Acute) History of endocarditis (Acute) MRSA....she thinks it was the tricuspid valve. Admitted to [facility] This is a 26-year-old female with history of PTSD, anxiety polysubstance use on IV heroin with history of MRSA endocarditis and septic pulmonary emboli, develop red man syndrome on IV vancomycin that was later switched to daptomycin is being admitted for medical stabilization of acute opioid withdrawal. she does not want to be on Vivitrol or Suboxone at [place]. 1. Acute opioid withdrawal: We will [facility] protocol for medical stabilization acute opioid withdrawal. HIV and hepatitis panel are pending. U tox shows positive opioids and benzodiazepines. 2. Polysubstance use including IV heroin, chronic benzodiazepine use, anxiety and PTSD 3. Other chronic comorbidities including endometriosis status post multiple surgeries including MOIRA with BSO. DVT prophylaxis: Low risk, encourage early ambulation Code Visit Inpatient E&M: 42858 Subs Hosp L2
--- NOTE | 2017-06-13 09:16 | PN_ITS ---
Patient Problems: Active and Suspected Problems Opiate withdrawal (Acute) History of endocarditis (Acute) MRSA....she thinks it was the tricuspid valve. Admitted to [facility] Subjective: Mild muscle aches and pain Vitals/I&O's: Vital Signs Temp Pulse Resp BP Pulse Ox 98.6 F 72 16 100/61 100 06/13/17 06:06 06/13/17 06:06 06/13/17 06:06 06/13/17 06:06 06/12/17 22:05 Oxygen Delivery Method Room Air Weight: 164 lb 10.965 oz Body Mass Index (BMI) 25.7 Intake and Output for Last 24 Hours 06/11/17 06/12/17 06/13/17 23:59 23:59 23:59 Intake Total 1300 / 1300 1969 500 / 500 Output Total 100 / 100 Balance 1200 / 1200 1969 500 / 500 General: Alert, Oriented x3, Cooperative HEENT: Atraumatic, PERRLA, EOMI, Normocephalic Neck: Supple, No JVD, Negative Carotid Bruits Lungs: Clear to auscultation, Normal air movement, No rhonchi, No wheeze, No rales Cardiovascular: Regular rate, Regular Rhythm, Normal S1, Normal S2, No murmurs Abdomen: Bowel Sounds Present, Soft, Non Tender Extremities: No edema, Capillary Refill Less than 3 Seconds Skin: No rashes, No breakdown Musculoskeletal: No Tenderness to Palpation of Joints or Extremities Neurological: Cranial nerves II-XII grossly intact Psych/Mental Status: Normal Affect, Appropriate Current Medications Acetaminophen (Tylenol) 500 mg PO Q4H PRN PRN PRN Reason: Temp > 100.4 F Al Hydroxide/Mg Hydroxide (Mylanta Ii) 30 ml PO Q6H PRN PRN PRN Reason: dyspesia Alprazolam (Xanax) 0.5 mg PO BID@0600,1400 [facility] Last Admin: 06/13/17 06:08 Dose: 0.5 mg Alprazolam (Xanax) 1 mg PO QHS [facility] Last Admin: 06/12/17 22:08 Dose: 1 mg Bisacodyl (Dulcolax) 10 mg RECTAL DAILY PRN PRN Reason: Constipation Buprenorphine HCl (Buprenorphine Hcl) 2 mg SL Q12H [facility] PRN Reason: Taper Stop: 06/13/17 23:59 Last Admin: 06/12/17 23:59 Dose: 2 mg Carbidopa/Levodopa (Sinemet) 1 tablet PO Q8H PRN PRN PRN Reason: RESTLESSNESS Last Admin: 06/13/17 06:08 Dose: 1 tablet Clonidine (Catapres) 0.1 mg PO Q2H PRN PRN PRN Reason: Hot/Cold Sweats or Anxiety Last Admin: 06/13/17 06:08 Dose: 0.1 mg Dicyclomine HCl (Bentyl) 20 mg PO Q6H PRN PRN PRN Reason: Abdomnial Discomfort Last Admin: 06/12/17 11:49 Dose: 20 mg Hydroxyzine Pamoate (Vistaril) 50 mg PO Q6H PRN PRN PRN Reason: Mild Anxiety (score 1/3) Last Admin: 06/13/17 02:07 Dose: 50 mg Ibuprofen (Motrin) 600 mg PO Q8H PRN PRN PRN Reason: Mild-Moderate Pain (1-5/10) Last Admin: 06/12/17 22:08 Dose: 600 mg Loperamide HCl (Imodium) 2 - 4 mg PO UD PRN PRN Reason: LOOSE STOOLS Methocarbamol (Methocarbamol) 750 mg PO Q6H PRN PRN PRN Reason: Muscle Aches Last Admin: 06/13/17 02:07 Dose: 750 mg Multivitamins/Minerals (Multivitamin With Minerals) [facility] Last Admin: 06/12/17 11:48 Dose: 1 tablet Ondansetron HCl (Zofran Odt) 4 mg PO Q6H PRN PRN PRN Reason: NAUSEA Last Admin: 06/12/17 11:49 Dose: 4 mg Pramipexole Dihydrochloride (Mirapex) 0.25 mg PO Q12H PRN PRN PRN Reason: Restless legs Last Admin: 06/13/17 06:08 Dose: 0.25 mg Quetiapine Fumarate (Seroquel) 100 mg PO QHS [facility] Last Admin: 06/12/17 22:08 Dose: 100 mg Senna (Senokot) 1 tablet PO QHS PRN PRN Reason: Constipation Assessment/Plan Active and Suspected Problems Opiate withdrawal (Acute) History of endocarditis (Acute) MRSA....she thinks it was the tricuspid valve. 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 she does not want to be on Vivitrol or Suboxone at [place]. 1. Acute opioid withdrawal: We will [facility] protocol for medical stabilization acute opioid withdrawal. HIV and hepatitis panel are pending. U tox shows positive opioids and benzodiazepines. 2. Polysubstance use including IV heroin, chronic benzodiazepine use, anxiety and PTSD 3. Other chronic comorbidities including endometriosis status post multiple surgeries including MOIRA with BSO. DVT prophylaxis: Low risk, encourage early ambulation Code Visit Inpatient E&M: 33866 Subs Hosp L2
--- NOTE | 2017-06-13 09:19 | PCM.DC ---
- Discharge Diagnoses Current Active Problems: Current Active and Chronic Problems Heroin addiction (Chronic) Anxiety (Chronic) Insomnia (Chronic) PTSD (post-traumatic stress disorder) (Chronic) Endometriosis (Chronic) Opiate withdrawal (Acute) History of endocarditis (Acute) MRSA....she thinks it was the tricuspid valve. Admitted to [facility] You will use the following diet at home:: Regular Discharge Activity: May Not Drive Additional Instructions: outpatient rehab for opoids dependance as per [facility] program Allergies/Adverse Reactions: Allergies dexamethasone [From Decadron] Allergy (Verified 06/11/17 00:08) Other Penicillins Allergy (Verified 06/10/17 20:10) Other STATES SHE PASSES OUT Medications to take at Discharge BusPIRone [Buspar] 7.5 mg PO TID PRN PRN 06/10/17 Quetiapine Fumarate [Seroquel] 100 mg PO QHS 06/10/17 ALPRAZolam [Xanax] 0.5 mg PO TID PRN PRN #0 06/13/17 Multivitamins,Ther W-Minerals [Multivitamin With Minerals] 1 tablet PO DAILYCM #0 tablet 06/13/17 Primary Care Physician: NOT,DEFINED [NON-STAFF] - Please follow up with your Primary Care Physician in: in 1-2 weeks
--- NOTE | 2017-06-13 09:22 | DS.PCM_ITS ---
Discharge Date and Diagnosis - Problem List Patient Problems: Active and Suspected Problems Opiate withdrawal (Acute) History of endocarditis (Acute) MRSA....she thinks it was the tricuspid valve. Admitted to [facility] Date of Admission: 06/10/17 Date of Discharge: 06/13/17 - Primary Discharge Diagnosis Active and Suspected Problems Acute opioid withdrawal: Polysubstance use including IV heroin, chronic benzodiazepine use, anxiety and PTSD - Secondary Discharge Diagnosis Chronic Problems Heroin addiction (Chronic) Anxiety (Chronic) Insomnia (Chronic) PTSD (post-traumatic stress disorder) (Chronic) Endometriosis (Chronic) History of endocarditis (Acute) MRSA....she thinks it was the tricuspid valve. was Admitted to [facility] Hospital Course and Treatment Summary of Care Provided: T [] This is a 26-year-old female with history of PTSD, anxiety polysubstance use on IV heroin with history of MRSA endocarditis and septic pulmonary emboli, develop red man syndrome on IV vancomycin that was later switched to daptomycin is being admitted for medical stabilization of acute opioid withdrawal. 1. Acute opioid withdrawal: The patient was admitted on the regular floor and started [facility] protocol for medical stabilization acute opioid withdrawal. HIV and hepatitis panel are pending. U tox shows positive opioids and benzodiazepines. Patient symptoms got much improved and controlled. 2. Polysubstance use including IV heroin, chronic benzodiazepine use, anxiety and PTSD 3. Other chronic comorbidities including endometriosis status post multiple surgeries including MOIRA with BSO. DVT prophylaxis: Low risk, encourage early ambulation. Is discharged in stable condition.she does not want to be on Vivitrol or Suboxone at discharge. Discharge medication reconciliation done. Follow-up instructions given. Follow with the [facility] outpatient rehab for opioid dependence Discharge Activity: May Not Drive Home Medications: Medications to take at Discharge BusPIRone [Buspar] 7.5 mg PO TID PRN PRN 06/10/17 Quetiapine Fumarate [Seroquel] 100 mg PO QHS 06/10/17 ALPRAZolam [Xanax] 0.5 mg PO TID PRN PRN #0 06/13/17 Multivitamins,Ther W-Minerals [Multivitamin With Minerals] 1 tablet PO DAILYCM # 0 tablet 06/13/17 Primary Care Physician: NOT,DEFINED [NON-STAFF] - Please follow up with your Primary Care Physician in: in 1-2 weeks Meaningful Use Info Meaningful Use Diagnoses (Choose all that apply): None applicable Code Visit Inpatient E&M: 49988 Disch Hosp
--- NOTE | 2017-06-13 09:22 | DCINST_ITS ---
- Discharge Diagnoses Current Active Problems: Current Active and Chronic Problems Heroin addiction (Chronic) Anxiety (Chronic) Insomnia (Chronic) PTSD (post-traumatic stress disorder) (Chronic) Endometriosis (Chronic) Opiate withdrawal (Acute) History of endocarditis (Acute) MRSA....she thinks it was the tricuspid valve. Admitted to [facility] You will use the following diet at home:: Regular Discharge Activity: May Not Drive Additional Instructions: outpatient rehab for opoids dependance as per [facility] program Allergies/Adverse Reactions: Allergies dexamethasone [From Decadron] Allergy (Verified 06/11/17 00:08) Other Penicillins Allergy (Verified 06/10/17 20:10) Other STATES SHE PASSES OUT Medications to take at Discharge BusPIRone [Buspar] 7.5 mg PO TID PRN PRN 06/10/17 Quetiapine Fumarate [Seroquel] 100 mg PO QHS 06/10/17 ALPRAZolam [Xanax] 0.5 mg PO TID PRN PRN #0 06/13/17 Multivitamins,Ther W-Minerals [Multivitamin With Minerals] 1 tablet PO DAILYCM # 0 tablet 06/13/17 Primary Care Physician: NOT,DEFINED [NON-STAFF] - Please follow up with your Primary Care Physician in: in 1-2 weeks
[2017-06-13 10:40] VITALS: BP 105/66; PULSE 94; RESP 16; TEMP 36.8; O2SAT 100
[2017-06-13] MEDS: Multivitamins,Ther W-Minerals Tablet 1 TABLET PO (10:43)
[2017-06-13] MEDS: Dicyclomine 10 MG Capsule 20 MG PO (10:55)
[2017-06-13 10:57] VITALS: RESP 16
[2017-06-13] MEDS: Buprenorphine HCl 2 MG TAB.SUBL SL (11:56)
[2017-06-13 14:00] VITALS: RESP 16
[2017-06-13 14:11] VITALS: BP 107/69; PULSE 70; RESP 16; TEMP 36.7; O2SAT 100
[2017-06-13] MEDS: Ibuprofen 600 MG Tablet PO (14:15)
[2017-06-14 10:04] LABS: HEPATITIS B SURFACE AG Negative (Negative); HEPATITIS B SURFACE AG 6510 Negative (Negative); Hepatitis A IgM Antibody Negative (Negative); Hepatitis B Core AB IgM Negative (Negative); Hepatitis C Ab >11.0 s/co ratio (0.0-0.9)
[2017-06-14 11:01] LABS: HIV 1/0/2 SCREEN 4TH GEN Non Reactive (Non Reactive)
[2017-06-14 11:47] LABS: Hep B Surface Antibodies Reactive (.)
[2017-06-14 11:50] LABS: Hep C Antibodies >11.0 s/co ratio (0.0-0.9)
--- NOTE | 2017-06-20 11:38 | NURSING ---
LAB CALLED THIS NURSE AND INFORMED ME THAT EVEN THOUGH PT HAS BEEN DISCHARGED, HEP C antibody came back positive.
== END 2017-06-13 14:46 | disposition home or self-care (01) | DRG 435 ==
LOC: ED 20:48 → MS2 06-11 07:43
PROVIDERS: Admitting Provider Internal Medicine; Emergency Provider Emergency Medicine; Visit Provider Internal Medicine
DX: F11.23 Opioid dependence with withdrawal (principal); F19.90 Other psychoactive substance use, unspecified, uncomplicated; F41.9 Anxiety disorder, unspecified; G47.00 Insomnia, unspecified; F43.10 Post-traumatic stress disorder, unspecified; Z86.14 Personal history of Methicillin resistant Staphylococcus aureus infection; Z59.0 Homelessness
CPT/HCPCS: 36415; 80048; 80074; 80307; 80320; 85025; 86703; 86706; 86803; 87340; 97802; 99218; 99282; G0378; G0480